=== PATIENT | female | born 2000 | race African-American/Black ===

== ENCOUNTER 2023-12-13 12:50 | Observation (INO) | payer BC | END 2023-12-13 14:12 | disposition left against medical advice (07) | LOC: LDRP 12:50 | PROVIDERS: ADMIT Obstetrics & Gynecology; ATTEND Obstetrics & Gynecology | DX: O26.853 Spotting complicating pregnancy, third trimester (principal); O26.893 Other specified pregnancy related conditions, third trimester; R10.2 Pelvic and perineal pain; Z3A.38 38 weeks gestation of pregnancy | CPT/HCPCS: 76805; 76817; 76818; G0378 ==

== ENCOUNTER 2025-01-20 15:10 | Observation (INO) | payer OTHER, MEDICAID ==
--- NOTE | 2025-01-22 09:49 | DVHDS2 ---
Physician Discharge Progress N Final Diagnosis: 29 WKS ANTI BODY M POSITIVE Operations or Procedures: Operations or Procedures NST REACTIVE REVIWED,SONO Condition on Discharge: Good Disposition: Home Discharge Instructions: Diet: Regular Activity: No Restrictions, As Tolerated Medications: NA Follow Up Care: Specialist: 3D Discharge Statement: "Patient was advised to return to the ER or call 911 if any headaches, dizziness, shortness of breath, chest pain, abdominal pain, bleeding, fevers, or worsening of medical condition. Patient was counseled about treatment plan, medications, possible side effects, patientverbalized understanding. All questions were answered to the best of my ability. This discharge took greater then 30 minutes in planning, reviewing documentation, counseling the patient, and discussing with other team members." Visit Coding OBGYN Date of Service: Jan 20, 2025 Billing Provider: ADAM CANALES DO FISH BIN TENDER Common Visit Codes: 40465-[id number] OBS CARE (HIGH) FISH BIN TENDER Procedure Codes: 43751-30- NON-STRESS TEST ADAM CANALES DO Jan 22, 2025 09:49
== END 2025-01-20 16:07 | disposition home or self-care (01) ==
LOC: UNDOADMOB 15:10 → LDRP 15:10
PROVIDERS: ADMIT Obstetrics & Gynecology; ATTEND Obstetrics & Gynecology
DX: O36.1930 Maternal care for other isoimmunization, third trimester, not applicable or unspecified (principal); Z3A.29 29 weeks gestation of pregnancy; Z98.890 Other specified postprocedural states
CPT/HCPCS: 59025; 81002; 94760; G0378

== ENCOUNTER 2025-01-27 06:40 | Observation (INO) | payer OTHER, MEDICAID ==
--- NOTE | 2025-01-27 10:59 | DVHDS2 ---
Physician Discharge Progress N Final Diagnosis: IUP 30 wk, Anti C Antibody + Operations or Procedures: Operations or Procedures NST only, (appropriate for gest age) Condition on Discharge: Stable Disposition: Home Discharge Instructions: Diet: Regular Activity: Light activity Follow Up/Referral: As sched Medications: NA Follow Up Care: Discharge Statement: "Patient was advised to return to the ER or call 911 if any headaches, dizziness, shortness of breath, chest pain, abdominal pain, bleeding, fevers, or worsening of medical condition. Patient was counseled about treatment plan, medications, possible side effects, patientverbalized understanding. All questions were answered to the best of my ability. This discharge took greater then 30 minutes in planning, reviewing documentation, counseling the patient, and discussing with other team members." Visit Coding OBGYN Date of Service: Jan 27, 2025 Billing Provider: YARI TAVERA DO WIRE BRUSHER Common Visit Codes: 35161-ILM/OBS SAME DATE (MOD) WIRE BRUSHER Procedure Codes: 22393-78- NON-STRESS TEST YARI TAVERA DO Jan 27, 2025 10:59
== END 2025-01-27 11:08 | disposition home or self-care (01) ==
LOC: LDRP 09:45 → UNDOADMOB 09:45 → LDRP 09:59 → UNDODISOB 11:08
PROVIDERS: ADMIT Obstetrics & Gynecology; ATTEND Obstetrics & Gynecology
DX: O36.1930 Maternal care for other isoimmunization, third trimester, not applicable or unspecified (principal); Z3A.30 30 weeks gestation of pregnancy; Z98.890 Other specified postprocedural states
CPT/HCPCS: 59025; 81002; 94762; G0378

== ENCOUNTER 2025-02-02 10:10 | Observation (INO) | payer OTHER, MEDICAID ==
[2025-02-02] MEDS ORDERED: PREN27TA7 OR (10:54)
[2025-02-02] MEDS ORDERED: NITR-87 PO (10:54)
[2025-02-02 11:47] LABS: Urine Protein, UAD Negative (Negative)
[2025-02-02 11:55] LABS: Cannabinoid Screen, Urine Neg (NEGATIVE)
[2025-02-02 11:56] LABS: Barbiturate Scree,Urine Neg (NEGATIVE); Opiate Scree,Urine Neg (NEGATIVE); Phencyclidine Screen, Urine Neg (NEGATIVE)
[2025-02-02 11:57] LABS: Amphetamine Screen, Urine Neg (NEGATIVE); Benzodiazephine Screen, Urine Neg (NEGATIVE); Cocaine Screen, Urine Neg (NEGATIVE)
--- NOTE | 2025-02-02 12:10 | DVHDS2 ---
Physician Discharge Progress N Final Diagnosis: anti d ab Operations or Procedures: Operations or Procedures nsyt reactive reviwed,sono Condition on Discharge: Good Disposition: Home Discharge Instructions: Diet: Regular Activity: No Restrictions, As Tolerated Medications: na Follow Up Care: Specialist: 5d Discharge Statement: "Patient was advised to return to the ER or call 911 if any headaches, dizziness, shortness of breath, chest pain, abdominal pain, bleeding, fevers, or worsening of medical condition. Patient was counseled about treatment plan, medications, possible side effects, patientverbalized understanding. All questions were answered to the best of my ability. This discharge took greater then 30 minutes in planning, reviewing documenta tion, counseling the patient, and discussing with other team members." Visit Coding OBGYN Date of Service: Feb 02, 2025 Billing Provider: ADAM CANALES DO WIND FARM SUPPORT SPECIALIST Common Visit Codes: [id number] OBS CARE (HIGH) WIND FARM SUPPORT SPECIALIST Procedure Codes: 77562-18- NON-STRESS TEST ADAM CANALES DO Feb 02, 2025 12:10
== END 2025-02-02 11:06 | disposition home or self-care (01) ==
LOC: LDRP 10:10 → UNDOADMOB 10:10 → LDRP 10:16 → UNDODISOB 11:06
PROVIDERS: ADMIT Obstetrics & Gynecology; ATTEND Obstetrics & Gynecology
DX: O36.0130 Maternal care for anti-D [Rh] antibodies, third trimester, not applicable or unspecified (principal); Z3A.31 31 weeks gestation of pregnancy; Z98.890 Other specified postprocedural states; Z79.899 Other long term (current) drug therapy
CPT/HCPCS: 59025; 80307; 81001; 81002; 94760; G0378

== ENCOUNTER 2025-02-09 06:27 | Observation (INO) | payer OTHER, MEDICAID ==
[~2025-02-09] VITALS: Ht 170.2 cm; Wt 59.9 kg
[~2025-02-09 06:27] MED LIST: NITR-87 PO; PREN27TA7 OR
[2025-02-09] MEDS: TERBUTALINE SULFATE 1 MG/ML 1ML VIAL SC SCH (09:43)
--- NOTE | 2025-02-09 10:20 | DVH ---
OB ULTRASOUND <14 WEEKS: HISTORY: cervical length, presentation TECHNIQUE: Multiple real-time grayscale sonographic images of the pelvis with duplex Doppler color f low, spectral and M-mode analysis. TRANSDUCERS: Transvaginal COMPARISON: US OB TRANS VAGINAL US on DOS: 02/09/25, US OB LIMITED on DOS: 02/04/25, US OB LIMITED on DOS: 02/04/25, US OB LIMITED on DOS: 12/13/23, US OB TRANS VAGINAL US on DOS: 12/13/23 Findings/ IMPRESSION: Cephalic presentation. Grade 1, posterior placenta. heart rate 131 beats per minute CARY 10.1 cm. Deepest pocket measures 3.8 cm. Cervix is short and measures 2.3 cm. Possible venous placental pisano is present measuring 5.5 x 3.7 cm.
[2025-02-09] MEDS ORDERED: BETAMETHASONE ACET (30mg/5ml) 5ml Vial 6mg/ml ONE (10:39)
[2025-02-09] MEDS: BETAMETHASONE ACET (30mg/5ml) 5ml Vial 6mg/ml IM ONE (11:24)
--- NOTE | 2025-02-10 08:21 | DVHDS2 ---
Physician Discharge Progress N Final Diagnosis: PTL, positive antibody 32 wks Operations or Procedures: Operations or Procedures nst reactive reviwed,sono Condition on Discharge: Good Disposition: Home Discharge Instructions: Diet: Regular Activity: No Restrictions, As Tolerated Follow Up/Referral: NST 2 xwk, retrun tomorrow for 2nd dose of celestone Medications: na Follow Up Care: Specialist: 1d Discharge Statement: "Patient was advised to return to the ER or call 911 if any headaches, dizziness, shortness of breath, chest pain, abdominal pain, bleeding, fevers, or worsening of medical condition. Patient was counseled about treatment plan, medications, possible side effects, patientverbalized understanding. All questions were answered to the best of my ability. This discharge took greater then 30 minutes in planning, reviewing documentation, counseling the patient, and discussing with other team members." Visit Coding OBGYN Date of Service: Feb 09, 2025 Billing Provider: ADAM CANALES DO LOCATOR Common Visit Codes: [id number] INP/OBS CARE (HIGH) LOCATOR Procedure Codes: 57790-66- NON-STRESS TEST ADAM CANALES DO Feb 10, 2025 08:21
== END 2025-02-09 10:49 | disposition home or self-care (01) ==
LOC: UNDOADMOB 07:48 → LDRP 07:48
PROVIDERS: ADMIT Obstetrics & Gynecology; ATTEND Obstetrics & Gynecology
DX: O60.03 Preterm labor without delivery, third trimester (principal); Z3A.32 32 weeks gestation of pregnancy; Z98.890 Other specified postprocedural states
CPT/HCPCS: 59025; 76815; 76817; 94760; 96372; G0378; J0702; J3105

== ENCOUNTER 2025-02-10 05:32 | Observation (INO) | payer OTHER, MEDICAID ==
[~2025-02-10] VITALS: Ht 170.2 cm; Wt 61.2 kg
[2025-02-10] MEDS: BETAMETHASONE ACET (30mg/5ml) 5ml Vial 6mg/ml IM ONE (11:48)
--- NOTE | 2025-02-10 16:21 | DVHDS2 ---
Physician Discharge Progress N Final Diagnosis: PTL 32 WKS Operations or Procedures: Operations or Procedures NST REACTIVE REVIWED,CELESTONE Condition on Discharge: Good Disposition: Home Discharge Instructions: Diet: Regular Activity: No Restrictions, As Tolerated Medications: NA Follow Up Care: Specialist: 1W Discharge Statement: "Patient was advised to return to the ER or call 911 if any headaches, dizziness, shortness of breath, chest pain, abdominal pain, bleeding, fevers, or worsening of medical condition. Patient was counseled about treatment plan, medications, possible side effects, patientverbalized understanding. All questions were answered to the best of my ability. This discharge took greater then 30 minutes in planning, reviewing docu mentation, counseling the patient, and discussing with other team members." Visit Coding OBGYN Date of Service: Feb 10, 2025 Billing Provider: ADAM CANALES DO WINCH STRIPPER Common Visit Codes: [id number] OBS CARE (HIGH) WINCH STRIPPER Procedure Codes: 70848-52- NON-STRESS TEST ADAM CANALES DO Feb 10, 2025 16:21
== END 2025-02-10 12:09 | disposition home or self-care (01) ==
LOC: UNDOADMOB 11:15 → LDRP 11:15
PROVIDERS: ADMIT Obstetrics & Gynecology; ATTEND Obstetrics & Gynecology
DX: O60.03 Preterm labor without delivery, third trimester (principal); Z3A.32 32 weeks gestation of pregnancy; Z98.890 Other specified postprocedural states
CPT/HCPCS: 59025; 81002; 96372; G0378

== ENCOUNTER 2025-02-13 09:06 | Observation (INO) | payer OTHER, MEDICAID ==
--- NOTE | 2025-02-13 09:57 | DVH ---
BIOPHYSICAL PROFILE HISTORY: anti-m antibody TECHNIQUE: Multiple transabdominal real-time grayscale sonographic images through the gravid uterus of the fetus with duplex Doppler color flow and M-mode spectral analysis FINDINGS: BIOPHYSICAL PROFILE: breathing score: 2 movement score: 2 tone score: 2 Quantitative CARY score: 2 (CRAY: 12.7 Cm.) Total score: 8 The cervix is closed however short measuring 2.3 cm Single live fetus in cephalic presentation. heart rate 144 beats per minute. Grade II posterior placenta without previa or abruption Biophysical profile score 8/8 No placenta previa or abruption seen, 5.5 x 1 x 4 cm placental Benito. IMPRESSION: Biophysical profile score: 8 The cervix is closed however short measuring 2.3 cm
--- NOTE | 2025-02-13 09:57 | DVH ---
BIOPHYSICAL PROFILE HISTORY: anti-m antibody TECHNIQUE: Multiple transabdominal real-time grayscale sonographic images through the gravid uterus of the fetus with duplex Doppler color flow and M-mode spectral analysis FINDINGS: BIOPHYSICAL PROFILE: breathing score: 2 movement score: 2 tone score: 2 Quantitative CARY score: 2 (CARY: 12.7 Cm.) Total score: 8 The cervix is closed however short measuring 2.3 cm Single live fetus in cephalic presentation. heart rate 144 beats per minute. Grade II posterior placenta without previa or abruption Biophysical profile score 8/8 No placenta previa or abruption seen, 5.5 x 1 x 4 cm placental Benito. IMPRESSION: Biophysical profile score: 8 The cervix is closed however short measuring 2.3 cm
--- NOTE | 2025-02-13 11:31 | DVHDS2 ---
Discharge Summary Date of Admission Feb 13, 2025 at 09:06 Date of Discharge: Feb 13, 2025 Admitting Diagnosis Outpatient 02/13/2025 Wounds: None Labs/Diagnostic Data: None Brief Hx & Hospital Course: Patient's history of positive blood antibody here for routine screening now [address] BPP Consults/Reason for consult Thirty-three week history of serum blood antibody year for routine monitoring Operations or Procedures NST BPP perform on both region Condition at Discharge: Good Final Diagnosis/Problems List 33 weeks serum antibody stable reassuring Discharge Disposition: Home Discharge Instruct/Medications Diet: Regular Activity: Light activity Activity comment: Kick counts labor precautions Follow Up/Referral: Follow up as scheduled for her routine monitoring Medications: No new meds Scheduled Nitrofurantoin Monohydrate Mac (Macrobid), 100 MG PO BID, (Reported) Miscellaneous Medications Vit W/ Ferrous Fumara (), 1 TAB OR, (Reported) Discharge Statement: "Patient was advised to return to the ER or call 911 if any headaches, dizziness, shortness of breath, chest pain, abdominal pain, bleeding, fevers, or worsening of medical condition. Patient was counseled about treatment plan, medications, possible side effects, patientverbalized understanding. All questions were answered to the best of my ability. This discharge took greater then 30 minutes in planning, reviewing documentation, counseling the patient, and discussing with other team members." ASSESSMENT ASSESSMENT Assessment Visit Coding OBGYN Date of Service: Feb 13, 2025 Billing Provider: PRADEEP GIBSON DO LOOM OVERHAULER Common Visit Codes: [id number] INP/OBS CARE(MOD), 45164-[id number] INP/OBS CARE(HIGH), 72115-XLE/OBS SAME DATE (LOW) LOOM OVERHAULER Procedure Codes: 08302-14- NON-STRESS TEST PRADEEP GIBSON DO Feb 13, 2025 11:31
== END 2025-02-13 10:23 | disposition home or self-care (01) ==
LOC: UNDOADMOB 09:06 → LDRP 09:06 → UNDODISOB 10:23
PROVIDERS: ADMIT Obstetrics & Gynecology; ATTEND Obstetrics & Gynecology
DX: Z36.89 Encounter for other specified antenatal screening (principal); Z3A.33 33 weeks gestation of pregnancy; Z98.890 Other specified postprocedural states
CPT/HCPCS: 76817; 76818; 81002; 94760; G0378; 76819

== ENCOUNTER 2025-02-21 06:29 | Observation (INO) | payer OTHER, MEDICAID ==
--- NOTE | 2025-02-21 08:40 | DVH ---
BIOPHYSICAL PROFILE HISTORY: + antibody TECHNIQUE: Multiple transabdominal real-time grayscale sonographic images through the gravid uterus of the fetus with duplex Doppler color flow and M-mode spectral analysis FINDINGS: BIOPHYSICAL PROFILE: breathing score: 2 movement score: 2 tone score: 2 Quantitative CARY score: 2 (CARY: 10.7 Cm.) Total score: 8 The cervix measures 2.1 cm and appears shortened with possible fluid visualized. Single live fetus in cephalic presentation. heart rate 146 beats per minute. Grade 2 posterior placenta without previa or abruption IMPRESSION: Biophysical profile score: 8 The cervix measures 2.1 cm and appears shortened with possible fluid visualized. Correlate with gynecologic exam.
--- NOTE | 2025-02-21 15:08 | DVHDS2 ---
Physician Discharge Progress N Final Diagnosis: antibody pos 34 wks Operations or Procedures: Operations or Procedures nst reactive reviwed,sono Condition on Discharge: Undetermined Disposition: Eloped Discharge Instructions: Diet: Regular Activity: No Restrictions, As Tolerated Medications: na Follow Up Care: Specialist: pt eloped Discharge Statement: "Patient was advised to return to the ER or call 911 if any headaches, dizziness, shortness of breath, chest pain, abdominal pain, bleeding, fevers, or worsening of medical condition. Patient was counseled about treatment plan, medications, possible side effects, patientverbalized understanding. All questions were answered to the best of my ability. This discharge took greater then 30 minutes in planning, reviewing documentation, counseling the patient, and discussing with other team members." Visit Coding OBGYN Date of Service: Feb 21, 2025 Billing Provider: ADAM CANALES DO DRUM DRIER Common Visit Codes: [id number] INP/OBS CARE (HIGH) DRUM DRIER Procedure Codes: 50596-74- NON-STRESS TEST ADAM CANALES DO Feb 21, 2025 15:08
== END 2025-02-21 08:23 | disposition left against medical advice (07) ==
LOC: LDRP 07:42
PROVIDERS: ADMIT Obstetrics & Gynecology; ATTEND Obstetrics & Gynecology
DX: O62.9 Abnormality of forces of labor, unspecified (principal); Z3A.34 34 weeks gestation of pregnancy; Z98.890 Other specified postprocedural states
CPT/HCPCS: 76818; G0378; 76819

== ENCOUNTER 2025-03-11 16:52 | Emergency (ER) | payer OTHER, MEDICAID ==
--- NOTE | 2025-03-12 20:01 | DVHDS2 ---
Physician Discharge Progress N Final Diagnosis: [facility] 37wks Operations or Procedures: Operations or Procedures nst reactive reviwed,sono Condition on Discharge: Good Disposition: Home Discharge Instructions: Diet: Regular Activity: No Restrictions, As Tolerated Medications: na Follow Up Care: Specialist: 3d Discharge Statement: "Patient was advised to return to the ER or call 911 if any headaches, dizziness, shortness of breath, chest pain, abdominal pain, bleeding, fevers, or worsening of medical condition. Patient was counseled about treatment plan, medications, possible side effects, patientverbalized understanding. All questions were answered to the best of my ability. This discharge took greater then 30 minutes in planning, reviewing documentat ion, counseling the patient, and discussing with other team members." Visit Coding OBGYN Date of Service: Mar 11, 2025 Billing Provider: ADAM CANALES DO DIVINITY TEACHER Common Visit Codes: [id number] INP/OBS CARE (HIGH) DIVINITY TEACHER Procedure Codes: 22708-47- NON-STRESS TEST ADAM CANALES DO Mar 12, 2025 20:01
== END 2025-03-11 18:11 | disposition home or self-care (01) ==
LOC: EDBD 16:52 → ER 16:52 → LDRP 16:57
PROVIDERS: ADMIT Obstetrics & Gynecology; ATTEND Obstetrics & Gynecology
DX: O26.893 Other specified pregnancy related conditions, third trimester (principal); R10.30 Lower abdominal pain, unspecified; Z3A.37 37 weeks gestation of pregnancy; Z98.890 Other specified postprocedural states
CPT/HCPCS: 59025; 94760; G0378

== ENCOUNTER 2025-03-15 06:31 | Observation (INO) | payer OTHER, MEDICAID | END 2025-03-15 08:04 | disposition home or self-care (01) | LOC: UNDOADMOB 07:41 → LDRP 07:41 | PROVIDERS: ADMIT Obstetrics & Gynecology; ATTEND Obstetrics & Gynecology | DX: O62.9 Abnormality of forces of labor, unspecified (principal); Z3A.37 37 weeks gestation of pregnancy; Z98.890 Other specified postprocedural states | CPT/HCPCS: 59025; A4649; G0378 ==